=== PATIENT | female | born 1975 ===

== ENCOUNTER 2023-12-25 15:00 | Outpatient (REF) | payer BC, SELFPAY ==
[2023-12-26 11:32] LABS: Bacterial Vaginosis PCR NEGATIVE (Negative); Candida Group PCR NOT DETECTED (Not Detect); Candida glab krusei PCR NOT DETECTED (Not Detect); Trichomonas vaginalis PCR NOT DETECTED (Not Detect)
[2023-12-26 12:03] LABS: CT PCR NOT DETECTED (Not Detect.); NG PCR NOT DETECTED (Not Detect.)
== END 2023-12-25 15:01 | disposition home or self-care (01) ==
LOC: HO.LNP 15:00
PROVIDERS: Visit Provider Physician Assistant
DX: Z20.2 Contact with and (suspected) exposure to infections with a predominantly sexual mode of transmission (principal)
CPT/HCPCS: 0352U; 87491; 87591

== ENCOUNTER 2023-12-25 15:00 | Outpatient (AMB) | payer BC, SELFPAY ==
[2023-12-25 15:29] VITALS: BP 98/60; PULSE 81; O2SAT 98; BMI 24.1
--- NOTE | 2023-12-25 15:29 | AM.OFFWIN_ITS ---
Intake Vital Signs 12/25/23 15:29 Height 5 ft 7 in Weight 154 lb 2 oz BMI 24.1 BP 98/60 Blood Pressure Location Rt brachial Position Sitting Pulse 81 Pulse Source Pulse Oximeter Pulse Oximetry (%) 98 Oxygen Delivery Method Room Air Intake Visit Reasons: [employer] STD testing Intake Note: Patient here for STD testing as she has a new partner. Patient Tobacco Use Status: Current everyday Tobacco user Allergies No Known Allergies Allergy (Verified 12/25/23 15:35) Do you need a note to return to daycare/school/sports/work: No HPI HPI Comments History of Present Illness Details Patient is a 48-year-old female who is here for STI testing. She is concerned she might have been exposed with a new partner who is also female. She specifically asking for bacterial vaginosis testing. She denies any symptoms such as abnormal vaginal discharge or abnormal smell,, pain or fever PFSH Social History Patient Tobacco Use Status: Current everyday Tobacco user Review of Systems Const All systems reviewed & are unremarkable except as noted in HPI and below Physical Exam Vital Signs: Last Vital Signs Pulse 81 12/25/23 15:29 BP 98/60 12/25/23 15:29 Pulse Ox 98 12/25/23 15:29 Oxygen Delivery Method Room Air 12/25/23 15:29 BMI result Body Mass Index 24.1 Const General: cooperative, healthy appearing, comfortable, no acute distress and well developed Orientation/consciousness: patient oriented x3 Limitations: no limitations HEENT Head: Yes normal to inspection Ears: hearing grossly normal bilaterally General nose exam: Normal external nose present Face and sinus: Yes normal facial exam Eyes General: appearance normal, both eyes and all related structures Neck Neck: Yes normal visual inspection and Yes full ROM Resp Effort & Inspection: normal respiratory effort and able to speak in complete sentences Skin General skin exam: no rashes or lesions noted Neuro General: patient oriented x3 Extrem General: Yes normal to inspection Assessment & Plan Assessment & Plan (1) Possible exposure to STI: Code(s): Z20.2 - Contact with and (suspected) exposure to infections with a predominantly sexual mode of transmission Plan: Sent gonorrhea & chlamydia testing and bacterial vaginosis panel. Recommended if she has concerns for HIV or syphilis, she should follow up with her PCP. Ga ve patient education on if she is positive for any of these regarding treatment, ensuring she has cleared the disease and notifying partners. Plan See above Orders: Orders Bacterial Vaginosis Panel Today Z20.2 - Contact with and (suspected) exposure to infections with a predominantly sexual mode of transmission CT NG by PCR Today Z20.2 - Contact with and (suspected) exposure to infections with a predominantly sexual mode of transmission Coding Level of Care Code New Pt Level 4 (44934) Diagnoses Possible exposure to STI Z20.2
== END 2023-12-25 16:17 | disposition home or self-care (01) ==
PROVIDERS: Visit Provider Physician Assistant
DX: Z20.2 Contact with and (suspected) exposure to infections with a predominantly sexual mode of transmission (principal)